=== PATIENT | male | born 1975 | race Caucasian/White ===

== ENCOUNTER 2019-01-27 00:08 | Emergency (ER) | payer BC ==
[2019-01-27] MEDS ORDERED: RINGERS SOLUTION,LACTATED 1,000 ML IV ONE (02:45)
--- NOTE | 2019-01-27 02:47 | ER Document Report ---
ED General - General Chief Complaint: Numbness of Face Stated Complaint: FACIAL NUMBNESS Time Seen by Provider: 01/27/19 02:32 Mode of Arrival: Ambulatory Information source: Patient, Relative Notes: 43-year-old male with no reported past medical history presents via private vehicle with concern for a loss of taste and left eye puffiness. Patient reports that he was recently treated with prednisone, acyclovir and doxycycline. He reports that for several weeks he has felt flulike illness with fatigue, body aches, intermittent headaches. He reports having a diffuse rash. He was seen by his primary care physician and Lyme testing and treatment was initiated. He is on day 5 of doxycycline and has already completed his prednisone and acyclovir. Patient states tonight when he arrived from [place] he noticed that he was unable to taste on the left side of his mouth. He denies any recent headache, fever, chills, nausea, vomiting, chest pain, shortness of breath, difficulty with ambulation, difficulty speech, unilateral weakness. TRAVEL OUTSIDE OF THE [place] IN LAST 30 DAYS: No - HPI Onset: This afternoon Onset/Duration: Sudden Quality of pain: No pain Severity: None Pain Level: Denies Associated symptoms: Body/muscle aches. denies: Chest pain, Chills, Nonproductive cough, Productive cough, Diarrhea, Earache, Fever, Nausea, Vomiting, Rhinnorhea, Sinus pain/drainage, Shortness of breath, Sore throat Exacerbated by: Denies Relieved by: Denies Similar symptoms previously: No Recently seen / treated by doctor: Yes - Related Data Allergies/Adverse Reactions: No Known Allergies Allergy (Unverified 01/27/19 00:11) Past Medical History - General Information source: Patient - Social History Smoking Status: Never Smoker Frequency of alcohol use: None Drug Abuse: None Lives with: Family, Spouse/Significant other Family History: Reviewed & Not Pertinent Patient has suicidal ideation: No Patient has homicidal ideation: No - Medical History Medical History: Negative Review of Systems - Review of Systems Constitutional: Recent illness. denies: Chills, Diaphoresis, Fever, Weakness EENT: denies: Eye pain, Double vision, Ear pain, Difficulty swallowing, Vertigo Cardiovascular: denies: Chest pain, Palpitations, Dizziness, Lightheaded Respiratory: denies: Cough, Short of breath, Wheezing Gastrointestinal: denies: Abdominal pain, Vomiting, Poor appetite, Poor fluid intake Genitourinary: denies: Dysuria Male Genitourinary: No symptoms reported Musculoskeletal: denies: Back pain Skin: denies: Rash Hematologic/Lymphatic: denies: Anemia Neurological/Psychological: Sensory change, Numbness. denies: Confusion, Weakness, Gait changes, Loss of power, Seizure, Headaches, Speech impairment -: Yes All other systems reviewed and negative Physical Exam - Vital signs Vitals: Temp Pulse Resp BP Pulse Ox 97.8 F 63 18 139/78 H 97 01/27/19 00:22 01/27/19 00:22 01/27/19 00:22 01/27/19 00:01/27/19 00:22 - Notes Notes: PHYSICAL EXAMINATION: GENERAL: Well-appearing, well-nourished and in no acute distress. HEAD: Atraumatic, normocephalic. EYES: Pupils equal round and reactive to light, extraocular movements intact, sclera anicteric, conjunctiva are normal. ENT: Nares patent, oropharynx clear without exudates. Moist mucous membranes. NECK: Normal range of motion, supple without lymphadenopathy LUNGS: Breath sounds clear to auscultation bilaterally and equal. No wheezes rales or rhonchi. HEART: Regular rate and rhythm without murmurs ABDOMEN: Soft, nontender, nondistended abdomen. No guarding, no rebound. No masses appreciated. Musculoskeletal: Normal range of motion, no pitting or edema. No cyanosis. NEUROLOGICAL: Cranial nerves grossly intact. Normal speech, normal gait. Normal sensory, motor exams PSYCH: Normal mood, normal affect. SKIN: Warm, Dry, normal turgor, no rashes or lesions noted. Course - Re-evaluation Re-evalutation: Laboratory 01/27/19 01/27/19 01/27/19 02:59 02:59 02:59 WBC 6.7 RBC 4.88 Hgb 14.4 Hct 43.1 MCV 88 MCH 29.5 MCHC 33.4 RDW 12.8 Plt Count 374 Seg Neutrophils % 49.2 Lymphocytes % 40.7 Monocytes % 7.5 Eosinophils % 1.5 Basophils % 1.1 Absolute Neutrophils 3.3 Absolute Lymphocytes 2.7 Absolute Monocytes 0.5 Absolute Eosinophils 0.1 Absolute Basophils 0.1 PT 13.1 INR 0.99 APTT 34.3 Sodium 140.3 Potassium 4.8 Chloride 106 Carbon Dioxide 26 Anion Gap 8 BUN 19 Creatinine 0.84 Est GFR ( Amer) > 60 Est GFR (Non-Af Amer) > 60 Glucose 102 Calcium 9.7 Total Bilirubin 0.3 Direct Bilirubin 0.3 Neonat Total Bilirubin Not Reportable Neonat Direct Bilirubin Not Reportable Neonat Indirect Bili Not Reportable AST 27 ALT 48 Alkaline Phosphatase 61 Creatine Kinase 62 CK-MB (CK-2) Troponin I Total Protein 7.1 Albumin 4.2 TSH Free T4 Free T3 pg/mL Urine Color Urine Appearance Urine pH Ur Specific [place] Urine Protein Urine Glucose (UA) Urine Ketones Urine Blood Urine Nitrite Urine Bilirubin Urine Urobilinogen Ur Leukocyte Esterase Urine WBC (Auto) Urine RBC (Auto) Urine Mucus (Auto) Urine Ascorbic Acid Urine Opiates Screen Urine Methadone Screen Ur Barbiturates Screen Ur Phencyclidine Scrn Ur Amphetamines Screen U Benzodiazepines Scrn Urine Cocaine Screen U Marijuana (THC) Screen 01/27/19 01/27/19 01/27/19 02:59 02:59 02:59 WBC RBC Hgb Hct MCV MCH MCHC RDW Plt Count Seg Neutrophils % Lymphocytes % Monocytes % Eosinophils % Basophils % Absolute Neutrophils Absolute Lymphocytes Absolute Monocytes Absolute Eosinophils Absolute Basophils PT INR APTT Sodium Potassium Chloride Carbon Dioxide Anion Gap BUN Creatinine Est GFR ( Amer) Est GFR (Non-Af Amer) Glucose Calcium Total Bilirubin Direct Bilirubin Neonat Total Bilirubin Neonat Direct Bilirubin Neonat Indirect Bili AST ALT Alkaline Phosphatase Creatine Kinase CK-MB (CK-2) 0.32 Troponin I < 0.012 Total Protein Albumin TSH 2.58 Free T4 1.22 Free T3 pg/mL 3.93 Urine Color YELLOW Urine Appearance CLEAR Urine pH 5.0 Ur Specific [place] 1.015 Urine Protein NEGATIVE Urine Glucose (UA) NEGATIVE Urine Ketones NEGATIVE Urine Blood MODERATE H Urine Nitrite NEGATIVE Urine Bilirubin NEGATIVE Urine Urobilinogen NEGATIVE Ur Leukocyte Esterase NEGATIVE Urine WBC (Auto) 1 Urine RBC (Auto) 2 Urine Mucus (Auto) RARE Urine Ascorbic Acid NEGATIVE Urine Opiates Screen Urine Methadone Screen Ur Barbiturates Screen Ur Phencyclidine Scrn Ur Amphetamines Screen U Benzodiazepines Scrn Urine Cocaine Screen U Marijuana (THC) Screen 01/27/19 02:59 WBC RBC Hgb Hct MCV MCH MCHC RDW Plt Count Seg Neutrophils % Lymphocytes % Monocytes % Eosinophils % Basophils % Absolute Neutrophils Absolute Lymphocytes Absolute Monocytes Absolute Eosinophils Absolute Basophils PT INR APTT Sodium Potassium Chloride Carbon Dioxide Anion Gap BUN Creatinine Est GFR ( Amer) Est GFR (Non-Af Amer) Glucose Calcium Total Bilirubin Direct Bilirubin Neonat Total Bilirubin Neonat Direct Bilirubin Neonat Indirect Bili AST ALT Alkaline Phosphatase Creatine Kinase CK-MB (CK-2) Troponin I Total Protein Albumin TSH Free T4 Free T3 pg/mL Urine Color Urine Appearance Urine pH Ur Specific [place] Urine Protein Urine Glucose (UA) Urine Ketones Urine Blood Urine Nitrite Urine Bilirubin Urine Urobilinogen Ur Leukocyte Esterase Urine WBC (Auto) Urine RBC (Auto) Urine Mucus (Auto) Urine Ascorbic Acid Urine Opiates Screen NEGATIVE Urine Methadone Screen NEGATIVE Ur Barbiturates Screen NEGATIVE Ur Phencyclidine Scrn NEGATIVE Ur Amphetamines Screen NEGATIVE U Benzodiazepines Scrn NEGATIVE Urine Cocaine Screen NEGATIVE U Marijuana (THC) Screen NEGATIVE Chest X-Ray 01/27/19 02:41 IMPRESSION: No active disease. Head CT 01/27/19 02:41 IMPRESSION: No acute intracranial findings. Temp Pulse Resp BP Pulse Ox 98.0 F 66 15 138/81 H 98 01/27/19 05:21 01/27/19 02:35 01/27/19 05:21 01/27/19 05:21 01/27/19 05:21 01/28/19 16:07 43-year-old male with no reported past medical history presents via private vehicle with concern for a loss of taste and left eye puffiness. Patient reports that he was recently treated with prednisone, acyclovir and doxycycline. He reports that for several weeks he has felt flulike illness with fatigue, body aches, intermittent headaches. He reports having a diffuse rash. He was seen by his primary care physician and Lyme testing and treatment was initiated. Vital signs reviewed upon arrival and patient is afebrile, normal Chem-7 not hypoxic. He does not appear toxic or dehydrated. He has no neuro deficits on exam. No evidence of Silva's palsy. NIH is 0. Patient currently denying headache. EKG does show a first-degree AV bloc and incomplete right bundle branch block which makes me think that the patient's treatment of doxycycline for Lyme's disease is appropriate at this time. No evidence of Lyme's encephalitis. Patient was encouraged to return to the emergency department with any symptoms changing, worsening or concerning to him. Advised to continue his doxycycline as prescribed by his primary care physician. Discussed symptoms of Lyme's which are consistent with his presentation. Patient agreeable with discharge home. Patient was evaluated and treated as appropriate for the patient's presenting symptoms and complaint, with consideration of any critical or life threatening conditions that may be associated with their obtained history and exam as noted above. All results were discussed with patient. Patient provided the opportunity to ask questions, and express concerns. Patient was educated on treatments based on their presumed diagnosis as noted above. At this time we will discharge the patient with return precautions and follow-up recommendations. Verbal discharge instructions given a the bedside. Medication warnings reviewed. Patient is in agreement with this plan and has verbalized understanding of return precautions. After careful consideration I feel that that patient can be safely discharged from the emergency department, they were advised to followup with a primary care physician in 2-3 days. Dictation on this chart was performed using voice recognition software and may result in unintended grammatical, spelling, syntax or errors. - Vital Signs Vital signs: Temp Pulse Resp BP Pulse Ox 98.0 F 66 15 138/81 H 98 01/27/19 05:21 01/27/19 02:35 01/27/19 05:21 01/27/19 05:21 01/27/19 05:21 - Laboratory Result Diagrams: 01/27/19 02:59 01/27/19 02:59 Laboratory results interpreted by me: 01/27/19 02:59 Urine Blood MODERATE H - Diagnostic Test Radiology reviewed: Image reviewed, Reports reviewed - EKG Interpretation by Me [place]/QRS: RBBB - Incomplete Heart block present: 1st Degree When compared to previous EKG there are: Previous EKG unavailable Discharge - Discharge Clinical Impression: First degree AV block, Incomplete right bundle branch block, Lyme disease, unspecified Condition: Good Disposition: HOME, SELF-CARE Instructions: Doxycycline ([facility]), Lyme Disease ([facility]), Numbness or Paresthesia ([facility]) Additional Instructions: Continue your doxycycline as prescribed by your physician. Lyme's disease can cause numerous symptoms including headache, fatigue, joint pain, inability to move your forehead or closure eyes. If left untreated this can cause problems with your heart. Lyme's disease can also cause neuropathy, burning sensation, tingling and even numbness. Follow up with your [id number] hours for further care or return to the ED IMMEDIATELY if symptoms worsen or you have any concerns. If you cannot afford to follow up with your primary care physician a list of low cost clinics have been provided at the end of your discharge papers as well. Most prescribed medications have multiple side effects. The safest thing to do is when filling your prescription speak to your pharmacist regarding possible interactions with your normal home medications and over the counter medications such as Ibuprofen, Tylenol, Benadryl. If you experience any symptoms that cause you discomfort or concern you should discontinue the medication immediately and return to the emergency room or call your primary care physician.
[2019-01-27 03:14] LABS: ABSOLUTE BASOPHILS # (AUTO) 0.1 10^3/uL (0.0-0.2); ABSOLUTE EOSINOPHILS # (AUTO) 0.1 10^3/uL (0.0-0.6); ABSOLUTE LYMPHOCYTES (AUTO) 2.7 10^3/uL (0.5-4.7); ABSOLUTE MONOCYTES (AUTO) 0.5 10^3/uL (0.1-1.4); ABSOLUTE NEUT (AUTO) 3.3 10^3/uL (1.7-8.2); BASOPHILS % (AUTO) 1.1 % (0-2); EOSINOPHILS % (AUTO) 1.5 % (0-6); HEMATOCRIT 43.1 % (37.9-51.0); HEMOGLOBIN 14.4 g/dL (13.5-17.0); LYMPHOCYTES % (AUTO) 40.7 % (13-45); MEAN CORPUSCULAR HEMOGLOBIN 29.5 pg (27.0-33.4); MEAN CORPUSCULAR HGB CONC 33.4 g/dL (32.0-36.0); MEAN CORPUSCULAR VOLUME 88 fl (80-97); MONOCYTES % (AUTO) 7.5 % (3-13); PLATELET COUNT 374 10^3/uL (150-450); RED BLOOD COUNT 4.88 10^6/uL (4.35-5.55); RED CELL DISTRIBUTION WIDTH 12.8 % (11.5-14.0); SEGMENTED NEUTROPHILS % (AUTO) 49.2 % (42-78); TOTAL CELLS COUNTED % (AUTO) 100 %; WHITE BLOOD COUNT 6.7 10^3/uL (4.0-10.5)
[2019-01-27 03:19] LABS: INTERNATIONAL RATION (INR) 0.99; PARTIAL THROMBOPLASTIN TIME 34.3 SEC (23.5-35.8); PROTHROMBIN TIME 13.1 SEC (11.4-15.4)
[2019-01-27 03:30] LABS: ALANINE AMINOTRANSFERASE 48 U/L (21-72); ALBUMIN 4.2 g/dL (3.5-5.0); ALKALINE PHOSPHATASE 61 U/L (38-126); ANION GAP 8 (5-19); ASPARTATE AMINO TRANSFERASE 27 U/L (17-59); BILIRUBIN,DIRECT 0.3 mg/dL (0.0-0.4); BILIRUBIN,TOTAL 0.3 mg/dL (0.2-1.3); BLOOD UREA NITROGEN 19 mg/dL (7-20); CALCIUM 9.7 mg/dL (8.4-10.2); CARBON DIOXIDE 26 mmol/L (22-30); CHLORIDE 106 mmol/L (98-107); CREATINE KINASE 62 U/L (55-170); GLUCOSE 102 mg/dL (75-110); POTASSIUM 4.8 mmol/L (3.6-5.0); TOTAL PROTEIN 7.1 g/dL (6.3-8.2)
[2019-01-27 03:39] LABS: URINE AMPHETAMINES SCREEN NEGATIVE; URINE BARBITURATES SCREEN NEGATIVE; URINE BENZODIAZEPINES SCREEN NEGATIVE; URINE COCAINE SCREEN NEGATIVE; URINE MARIJUANA (THC) SCREEN NEGATIVE; URINE METHADONE SCREEN NEGATIVE; URINE PHENCYCLIDINE SCREEN NEGATIVE
[2019-01-27 03:41] LABS: APPEARANCE,URINE CLEAR; BILIRUBIN,URINE NEGATIVE (NEGATIVE); COLOR,URINE YELLOW; GLUCOSE, URINE NEGATIVE (NEGATIVE); KETONES,URINE NEGATIVE (NEGATIVE); LEUKOCYTE ESTERASE,URINE NEGATIVE (NEGATIVE); NITRITE,URINE NEGATIVE (NEGATIVE); PROTEIN,URINE NEGATIVE (NEGATIVE); URINE SPECIFIC GRAVITY 1.015; UROBILINOGEN,URINE NEGATIVE mg/dL (<2.0)
[2019-01-27 03:48] LABS: CREATINE KINASE MB 0.32 ng/mL (<4.55)
[2019-01-27 03:51] LABS: TROPONIN I < 0.012 ng/mL
[2019-01-27 03:59] LABS: FREE T3 3.93 pg/mL (2.77-5.27); FREE T4 (FREE THYROXINE) 1.22 ng/dL (0.78-2.19)
[2019-01-27 04:12] LABS: THYROID STIMULATING HORMONE 2.58 uIU/mL (0.47-4.68)
--- NOTE | 2019-01-27 04:13 | RADIOLOGY REPORT (SQ) ---
CLINICAL HISTORY: facial numbness, decreased taste COMPARISON: None. TECHNIQUE: CT HEAD WITHOUT IV CONTRAST on 01/27/2019 2:41 AM CDT This exam was performed according to our departmental dose-optimization program, which includes automated exposure control, adjustment of the mA and/or kV according to patient size and/or use of iterative reconstruction technique. FINDINGS: There is no acute hemorrhage, mass effect or midline shift. Crenshaw-white differentiation is preserved. There is no hydrocephalus. There is no significant volume loss for age. The calvarium is intact. Orbits and globes are unremarkable. The paranasal sinuses are clear. Mastoid air cells are clear. IMPRESSION: No acute intracranial findings.
--- NOTE | 2019-01-27 04:13 | RADIOLOGY REPORT (SQ) ---
Chest single view on 01/27/2019 at 3:45 AM CLINICAL INDICATION: Facial numbness, decreased taste COMPARISON: None FINDINGS: The lungs are clear. Cardiac, hilar and mediastinal contours are within normal limits. Pulmonary vascularity is within normal limits. No bony abnormality is noted. IMPRESSION: No active disease.
[2019-01-27 05:45] VITALS: BP 138/81
--- NOTE | 2019-01-27 07:00 | EKG REPORT ---
SEVERITY:- ABNORMAL ECG - SINUS RHYTHM FIRST DEGREE AV BLOCK INCOMPLETE RIGHT BUNDLE BRANCH BLOCK : Confirmed by: Mariah Melendez 27-Jan-2019 07:00:03
== END 2019-01-27 05:45 | disposition home or self-care (01) ==
LOC: ER 00:08
DX: A69.20 Lyme disease, unspecified (principal); I44.0 Atrioventricular block, first degree; I45.10 Unspecified right bundle-branch block; R43.8 Other disturbances of smell and taste; R20.0 Anesthesia of skin; R51 Headache; R53.83 Other fatigue; M79.10 Myalgia, unspecified site
CPT/HCPCS: 93005; 99284; 96360; 36415; 84439; 82553; 82550; 84443; 85025; 85610; 85730; 80053; 81001; 84484; 80307; 84481; 71045; 70450; 93010; J7120